=== PATIENT | male | born 1960 | race Caucasian/White ===

== ENCOUNTER 2020-12-24 07:18 | Inpatient (IN) ==
[2020-12-24] MEDS ORDERED: SODIUM CHLORIDE 0.9% 1000ML 1,000 ML IV ONE (07:26)
[2020-12-24] MEDS ORDERED: dexAMETHasone 6 MG in SYRINGE 0 ML IV ONE (08:03)
[2020-12-24 08:04] LABS: Eosinophils # (auto) 0.01 K/uL (0-0.5); Eosinophils % (auto) 0.2 %; Hematocrit (blood only) 39.5 % (42-52); Hemoglobin 13.1 g/dL (14.0-18.0); Immature Granulocytes # (auto) 0.01 K/uL (0.00-0.02); Immature Granulocytes % (auto) 0.2 %; Lymphocytes % (auto) 4.5 %; Mean Corpuscular Hemoglobin 28.5 pg (25-34); Mean Corpuscular Hgb Conc 33.2 g/dL (32-36); Mean Corpuscular Volume 86.1 fL (80-100); Mean Platelet Volume 8.9 fL (7.4-10.4); Monocytes # (auto) 0.75 K/uL (0.11-0.59); Monocytes % (auto) 11.3 %; Neutrophils # (auto) 5.59 K/uL (1.4-6.5); Neutrophils % (auto) 83.8 %; Platelet Count 235 K/uL (130-400); RDW Coefficient of Variation 13.4 % (11.5-14.5); RDW Standard Deviation 42.2 fL (36.4-46.3); Red Blood Count 4.59 M/uL (4.7-6.1); White Blood Count 6.66 K/uL (4.8-10.8)
[2020-12-24 08:07] LABS: Oxygen Saturation VBG 78.8 %; pH VBG 7.47 (7.36-7.41)
--- NOTE | 2020-12-24 08:15 | Emergency Department Note ---
History of Present Illness General Chief complaint: Illness Stated complaint: +COVID,FEVER,NOT FEELING WELL Time Seen by Provider: 12/24/20 07:26 History of Present Illness Provider complaint: Shortness of breath Onset (ago): day(s) 4 Maximum Pain Intensity: 0 Associated symptoms: + cough, + fever/chills, + headaches and + shortness of breath 60-year-old male presents emergency department for shortness of breath. Patient reports he tested positive for COVID-19 on Monday and has been feeling progressively worse. He reports increasing cough, increasing shortness of breath, increasing headache, and fevers that are on and off. Home Medications Medication Instructions Recorded Confirmed Type acetaminophen [Tylenol] 325 mg PO QID PRN 12/24/20 12/24/20 History Allergies Allergy/AdvReac Type Severity Reaction Status Date / Time No Known Allergies Allergy Unverified 12/24/20 08:22 Past Med/Surg History Medical History No pertinent family history No pertinent past medical history Surgical History No pertinent past surgical history Family History Father Coronary heart disease Heart disease Mother Hypertension Other Pulmonary embolism Denies family history of Diabetes Dyslipidemia Asthma Social History (Updated 12/24/20 @ 10:49 by Christopher Spivey MD) Smoking Status: Never smoker Tobacco Type: Smokeless Tobacco (Dip or Chew) Do You Dip or Chew Tobacco: Yes; Hx Alcohol Use: No Hx Substance Use: No Preferred Language: Nigerian Candy Maker Required: No Beliefs That Will Affect Care: None Current Living Situation: Spouse Feels Safe at Home: Yes Assistive Devices: Glasses Review of Systems A total of 10 systems reviewed and were otherwise negative Physical Exam Vital Signs Vital Signs - 24 hr 12/24/20 07:23 12/24/20 07:50 12/24/20 07:56 Temperature 36.7 C Temperature Source Temporal Artery Scan Pulse Rate 109 H Pulse Rate from SpO2 Sensor Respiratory Rate 16 Respiratory Effort / Characteristics Blood Pressure 100/63 Blood Pressure Mean 75 Pulse Oximetry 96 88 L 96 Oxygen Delivery Method Room Air Room Air Nasal Cannula Oxygen Flow Rate 2 Sepsis Recent Fever Within 48 Hours No Sepsis New/Unexplained Change in Mental Status No Sepsis Action Taken by Nursing No Action Required 12/24/20 07:58 12/24/20 07:59 12/24/20 08:00 Temperature 37.5 C Temperature Source Oral Pulse Rate 74 Pulse Rate from SpO2 Sensor 78 Respiratory Rate 17 Respiratory Effort / Characteristics Spontaneous Blood Pressure 140/96 Blood Pressure Mean 110 Pulse Oximetry 98 Oxygen Delivery Method Nasal Cannula Oxygen Flow Rate 2 Sepsis Recent Fever Within 48 Hours Sepsis New/Unexplained Change in Mental Status Sepsis Action Taken by Nursing 12/24/20 08:30 12/24/20 09:00 12/24/20 09:42 Temperature Temperature Source Pulse Rate 74 82 75 Pulse Rate from SpO2 Sensor 75 82 82 Respiratory Rate 23 28 H 17 Respiratory Effort / Characteristics Blood Pressure 139/74 136/69 128/73 Blood Pressure Mean 95 91 91 Pulse Oximetry 93 94 97 Oxygen Delivery Method Nasal Cannula Nasal Cannula Nasal Cannula Oxygen Flow Rate 2 2 2 Sepsis Recent Fever Within 48 Hours Sepsis New/Unexplained Change in Mental Status Sepsis Action Taken by Nursing 12/24/20 10:00 12/24/20 10:30 12/24/20 11:00 Temperature Temperature Source Pulse Rate 73 93 H 82 Pulse Rate from SpO2 Sensor 69 95 H 81 Respiratory Rate 24 24 24 Respiratory Effort / Characteristics Blood Pressure 133/69 137/87 127/72 Blood Pressure Mean 90 103 90 Pulse Oximetry 94 92 93 Oxygen Delivery Method Nasal Cannula Nasal Cannula Nasal Cannula Oxygen Flow Rate 2 2 2 Sepsis Recent Fever Within 48 Hours Sepsis New/Unexplained Change in Mental Status Sepsis Action Taken by Nursing Physical Exam GENERAL: He is oriented to person, place, and time. He appears well-developed and well-nourished. He does not appear distressed. HENT: Exam performed. - Head: Normocephalic and atraumatic. - Right Ear: External ear normal. No mastoid tenderness. - Left Ear: External ear normal. No mastoid tenderness. - Mouth/Throat: The oropharynx is clear and moist. No trismus in the jaw. No dental abscesses or uvula swelling. No oropharyngeal exudate or tonsillar abscesses. EYES: Conjunctivae and EOM are normal. Pupils are equal, round, and reactive to light. Right eye exhibits no discharge. Left eye exhibits no discharge. No scleral icterus. NECK: Normal range of motion. Neck supple. No JVD present. No spinous process tenderness present. No carotid bruit present. No rigidity. No tracheal deviation and normal range of motion present. No Brudzinski's sign and no Kernig's sign noted. CV: Tachycardic rate, regular rhythm, normal heart sounds and intact distal pulses. There is no peripheral edema. Palpable radial pulses bue. PULM/CHEST: Effort normal and breath sounds normal. No respiratory distress. No stridor. He has no wheezes. He has no rales. - Chest Wall: He exhibits no tenderness. ABD: The abdomen is soft. Bowel sounds are normal. He has no distension. No mass is present. There is no tenderness. There is no rebound, no guarding, no Beth's sign and no tenderness at McBurney's point. Rovsig negative. MUSC/SKEL: Normal range of motion. There is no peripheral edema, tenderness or deformity. LYMPH: No cervical adenopathy. NEURO: He is alert and oriented to person, place, and time. He has normal strength. No cranial nerve deficit or sensory deficit. Coordination and gait normal. GCS eye subscore is 4. GCS verbal subscore is 5. GCS motor subscore is 6. Cerebellar tests wnl. SKIN: Skin is warm and dry. He is not diaphoretic. PSYCH: He has a normal mood and affect. Behavior is normal. Judgment and thought content normal. Course Course 07: The patient was evaluated in room A9. A complete history and physical exam was performed Cardiac monitoring: An order was placed for continuous cardiac monitoring. The monitor shows a rate of 110 with sinus rhythm Patient was seen in full airborne precautions. Patient was seen in N95's, glov es, gowns, face shield by myself and staff. Patient was found to be hypoxic on room air and started on 2 L nasal cannula which improved his oxygen saturation. 0945: Vital signs stable on supplemental oxygen via nasal cannula. Labs and imaging are within normal limits with exception of groundglass opacities bilaterally that goes along with patient's Covid pneumonia. Patient will be admitted to the medicine hospitalist team. Decadron 6 mg IV push ordered for the patient. Administered Medications Discontinued Medications Sodium Chloride (Nss 1000ml) 1,000 mls @ 999 mls/hr IV .Q1H1M ONE Stop: 12/24/20 08:26 Last Infusion: 12/24/20 09:18 Dose: 0 mls/hr Documented by: [id number] Admin: 12/24/20 07:59 Dose: 999 mls/hr Documented by: [id number] Dexamethasone 6 mg/ Syringe 1.5 mls @ 1 mls/min IV ONE ONE Stop: 12/24/20 08:04 Last Admin: 12/24/20 08:23 Dose: 1 mls/min Documented by: [id number] Ioversol (Optiray 320 125ml) 120 ml IV ONCE ONE Stop: 12/24/20 09:12 Last Admin: 12/24/20 09:11 Dose: 120 ml Documented by: [id number] Critical Care Time Critical Care Time: Yes Total Critical Care Time: 59 I have personally spent greater than 59 minutes of critical care time in the direct management of this patient. This includes bedside care, interpretation of diagnostic studies, and testing, discussion with consultants, patient, and family members, and other required patient management activities. This 59 minutes is in excess of all separately billable procedures. Medical Decision Making Laboratory Data Result diagrams: 12/24/20 07:50 12/24/20 07:50 Lab Results 12/24/20 12/24/20 12/24/20 Range/Units 07:50 07:50 07:50 WBC 6.66 (4.8-10.8) K/uL RBC 4.59 L (4.7-6.1) M/uL Hgb 13.1 L (14.0-18.0) g/dL Hct 39.5 L (42-52) % MCV 86.1 (80-100) fL MCH 28.5 (25-34) pg MCHC 33.2 (32-36) g/dL RDW Std Deviation 42.2 (36.4-46.3) fL RDW Coeff of [place] 13.4 (11.5-14.5) % Plt Count 235 (130-400) K/uL MPV 8.9 (7.4-10.4) fL Immature Gran % (Auto) 0.2 % Neut % (Auto) 83.8 % Lymph % (Auto) 4.5 % [place] % (Auto) 11.3 % Eos % (Auto) 0.2 % Baso % (Auto) 0.0 % Neut # (Auto) 5.59 (1.4-6.5) K/uL Lymph # (Auto) 0.30 L (1.2-3.4) K/uL [place] # (Auto) 0.75 H (0.11-0.59) K/uL Eos # (Auto) 0.01 (0-0.5) K/uL Baso # (Auto) 0.00 (0-0.2) K/uL Immature Gran # (Auto) 0.01 (0.00-0.02) K/uL PT 10.3 (9.0-12.0) Seconds INR 1.0 (0.9-1.1) APTT 23.7 (21.0-31.0) Seconds PTT Ratio 0.9 VBG pH (7.36-7.41) VBG pCO2 (38-50) mmHg VBG pO2 mmHg VBG HCO3 mmol/L VBG O2 Saturation % VBG Base Excess mEq/L Barometric Pressure mm/Hg Sodium 139 (136-145) mmol/L Potassium 3.8 (3.5-5.1) mmol/L Chloride 106 (98-107) mmol/L Carbon Dioxide 27 (21-32) mmol/L Anion Gap 6.0 (3-11) BUN 8 (7-18) mg/dl Creatinine 0.75 (0.6-1.4) mg/dl Est Cr Clr Drug Dosing 109.7 ml/min Est GFR ( Amer) 116.4 Est GFR (Non-Af Amer) 100.4 BUN/Creatinine Ratio 10.7 (10-20) Glucose 105 H (70-99) mg/dl Lactate (0.4-2.0) mmol/L Calcium 9.1 (8.5-10.1) mg/dl Magnesium 2.1 (1.8-2.4) mg/dl Total Bilirubin 0.6 (0.2-1) mg/dl AST 29 (15-37) U/L ALT 42 (12-78) U/L Alkaline Phosphatase 92 (45-117) U/L Troponin I < 0.015 (0-0.045) ng/ml Total Protein 7.0 (6.4-8.2) gm/dl Albumin 3.2 L (3.4-5.0) gm/dl Globulin 3.8 (2.5-4.0) gm/dl Albumin/Globulin Ratio 0.9 (0.9-2) Procalcitonin (0-0.5) ng/ml Urine Color Urine Appearance (Clear) Urine pH (4.5-7.5) Ur Specific [place] (1.000-1.030) Urine Protein (Negative) Urine Glucose (UA) (Negative) Urine Ketones (Negative) Urine Blood (Negative) Urine Nitrite (Negative) Urine Bilirubin (Negative) Urine Urobilinogen (Negative) Ur Leukocyte Esterase (Negative) COVID-19 Eval Order SARS-CoV-2 (PCR) (Negative) Influenza Type A (PCR) (Neg) Influenza Type B (PCR) (Neg) RSV (RT-PCR) (Neg) 12/24/20 12/24/20 12/24/20 Range/Units 07:50 07:50 08:08 WBC (4.8-10.8) K/uL RBC (4.7-6.1) M/uL Hgb (14.0-18.0) g/dL Hct (42-52) % MCV (80-100) fL MCH (25-34) pg MCHC (32-36) g/dL RDW Std Deviation (36.4-46.3) fL RDW Coeff of [place] (11.5-14.5) % Plt Count (130-400) K/uL MPV (7.4-10.4) fL Immature Gran % (Auto) % Neut % (Auto) % Lymph % (Auto) % [place] % (Auto) % Eos % (Auto) % Baso % (Auto) % Neut # (Auto) (1.4-6.5) K/uL Lymph # (Auto) (1.2-3.4) K/uL [place] # (Auto) (0.11-0.59) K/uL Eos # (Auto) (0-0.5) K/uL Baso # (Auto) (0-0.2) K/uL Immature Gran # (Auto) (0.00-0.02) K/uL PT (9.0-12.0) Seconds INR (0.9-1.1) APTT (21.0-31.0) Seconds PTT Ratio VBG pH 7.47 H (7.36-7.41) VBG pCO2 41 (38-50) mmHg VBG pO2 42 mmHg VBG HCO3 29 mmol/L VBG O2 Saturation 78.8 % VBG Base Excess 5.0 mEq/L Barometric Pressure 729.2 mm/Hg Sodium (136-145) mmol/L Potassium (3.5-5.1) mmol/L Chloride (98-107) mmol/L Carbon Dioxide (21-32) mmol/L Anion Gap (3-11) BUN (7-18) mg/dl Creatinine (0.6-1.4) mg/dl Est Cr Clr Drug Dosing ml/min Est GFR ( Amer) Est GFR (Non-Af Amer) BUN/Creatinine Ratio (10-20) Glucose (70-99) mg/dl Lactate 0.9 (0.4-2.0) mmol/L Calcium (8.5-10.1) mg/dl Magnesium (1.8-2.4) mg/dl Total Bilirubin (0.2-1) mg/dl AST (15-37) U/L ALT (12-78) U/L Alkaline Phosphatase (45-117) U/L Troponin I (0-0.045) ng/ml Total Protein (6.4-8.2) gm/dl Albumin (3.4-5.0) gm/dl Globulin (2.5-4.0) gm/dl Albumin/Globulin Ratio (0.9-2) Procalcitonin < 0.05 (0-0.5) ng/ml Urine Color Urine Appearance (Clear) Urine pH (4.5-7.5) Ur Specific [place] (1.000-1.030) Urine Protein (Negative) Urine Glucose (UA) (Negative) Urine Ketones (Negative) Urine Blood (Negative) Urine Nitrite (Negative) Urine Bilirubin (Negative) Urine Urobilinogen (Negative) Ur Leukocyte Esterase (Negative) COVID-19 Eval Order SARS-CoV-2 (PCR) (Negative) Influenza Type A (PCR) (Neg) Influenza Type B (PCR) (Neg) RSV (RT-PCR) (Neg) 12/24/20 12/24/20 12/24/20 Range/Units 09:20 10:00 10:00 WBC (4.8-10.8) K/uL RBC (4.7-6.1) M/uL Hgb (14.0-18.0) g/dL Hct (42-52) % MCV (80-100) fL MCH (25-34) pg MCHC (32-36) g/dL RDW Std Deviation (36.4-46.3) fL RDW Coeff of [place] (11.5-14.5) % Plt Count (130-400) K/uL MPV (7.4-10.4) fL Immature Gran % (Auto) % Neut % (Auto) % Lymph % (Auto) % [place] % (Auto) % Eos % (Auto) % Baso % (Auto) % Neut # (Auto) (1.4-6.5) K/uL Lymph # (Auto) (1.2-3.4) K/uL [place] # (Auto) (0.11-0.59) K/uL Eos # (Auto) (0-0.5) K/uL Baso # (Auto) (0-0.2) K/uL Immature Gran # (Auto) (0.00-0.02) K/uL PT (9.0-12.0) Seconds INR (0.9-1.1) APTT (21.0-31.0) Seconds PTT Ratio VBG pH (7.36-7.41) VBG pCO2 (38-50) mmHg VBG pO2 mmHg VBG HCO3 mmol/L VBG O2 Saturation % VBG Base Excess mEq/L Barometric Pressure mm/Hg Sodium (136-145) mmol/L Potassium (3.5-5.1) mmol/L Chloride (98-107) mmol/L Carbon Dioxide (21-32) mmol/L Anion Gap (3-11) BUN (7-18) mg/dl Creatinine (0.6-1.4) mg/dl Est Cr Clr Drug Dosing ml/min Est GFR ( Amer) Est GFR (Non-Af Amer) BUN/Creatinine Ratio (10-20) Glucose (70-99) mg/dl Lactate (0.4-2.0) mmol/L Calcium (8.5-10.1) mg/dl Magnesium (1.8-2.4) mg/dl Total Bilirubin (0.2-1) mg/dl AST (15-37) U/L ALT (12-78) U/L Alkaline Phosphatase (45-117) U/L Troponin I (0-0.045) ng/ml Total Protein (6.4-8.2) gm/dl Albumin (3.4-5.0) gm/dl Globulin (2.5-4.0) gm/dl Albumin/Globulin Ratio (0.9-2) Procalcitonin (0-0.5) ng/ml Urine Color Yellow Urine Appearance Clear (Clear) Urine pH 7.5 (4.5-7.5) Ur Specific [place] 1.013 (1.000-1.030) Urine Protein Negative (Negative) Urine Glucose (UA) Negative (Negative) Urine Ketones Negative (Negative) Urine Blood Negative (Negative) Urine Nitrite Negative (Negative) Urine Bilirubin Negative (Negative) Urine Urobilinogen Negative (Negative) Ur Leukocyte Esterase Negative (Negative) COVID-19 Eval Order [facility] at [facility] SARS-CoV-2 (PCR) POSITIVE A* (Negative) Influenza Type A (PCR) Negative (Neg) Influenza Type B (PCR) Negative (Neg) RSV (RT-PCR) Negative (Neg) Imaging Data Radiologist's Impression: CT ANGIOGRAM OF THE CHEST CLINICAL HISTORY: Shortness of breath. Recent Covid 19 diagnosis. COMPARISON STUDY: Chest x-ray dated 12/24/2020 TECHNIQUE: Following the IV administration of 120 mL of Optiray-320, CT ang iogram of the thorax was performed from the thoracic inlet to the lung bases utilizing the pulmonary embolus protocol. Images are reviewed in the axial, sagittal, and coronal planes. IV contrast was administered without complication. MIP imaging was performed. A dose lowering technique was utilized adhering to the principles of ALARA. CT DOSE: 541.77 mGycm FINDINGS: Mediastinal and hilar lymph nodes are the upper limits of normal in size. There was no evidence of thoracic aortic dilatation. There were no pulmonary artery filling defects to indicate acute pulmonary embolism. There are small bilateral pleural effusions. There are bilateral groundglass opacities, consistent with a multifocal pneumonia. The findings are consistent with Covid 19 pneumonia. IMPRESSION: 1. Scattered bilateral groundglass opacities consistent with a multifocal pneumonia. The findings are consistent with although not specific for Covid 19 pneumonia 2. No evidence of acute pulmonary embolism ACT 112: Negative or not required by law. Electronically signed by: Oumar Herrera M.D. 12/24/2020 9:43 AM Dictated: 12/24/[id number]: 03/18/21 0940 SINGLE VIEW CHEST CLINICAL HISTORY: Sepsis. Covid. FINDINGS: An AP, portable, upright chest radiograph is obtained. No prior studies are available for comparison at the time of dictation. The examination is degraded by portable technique and patient rotation. The heart is top normal for projection. There is elevation of the right hemidiaphragm. Patchy consolidation is seen at both lung bases. No large pleural effusion or pneumothorax is seen. The bony thorax is grossly intact. IMPRESSION: There is bibasilar airspace consolidation consistent with the reported history of a viral pneumonia. Radiographic follow-up to resolution is r ecommended. ACT 112: Negative or not required by law. Electronically signed by: Ron Bertrand M.D. 12/24/2020 8:36 AM Dictated: 12/24/20 0835Transcribed: 12/24/20 0835 [facility] Narrative 0726: The patient was evaluated in room A9. A complete history and physical exam was performed Cardiac monitoring: An order was placed for continuous cardiac monitoring. The monitor shows a rate of 110 with sinus rhythm Patient was seen in full airborne precautions. Patient was seen in N95's, gloves, gowns, face shield by myself and staff. Patient was found to be hypoxic on room air and started on 2 L nasal cannula which improved his oxygen saturation. 0945: Vital signs stable on supplemental oxygen via nasal cannula. Labs and imaging are within normal limits with exception of groundglass opacities bilaterally that goes along with patient's Covid pneumonia. Patient will be admitted to the medicine hospitalist team. Decadron 6 mg IV push ordered for the patient. Impression & Plan Pneumonia due to COVID-19 virus, Hypoxia Discharge Plan Visit Data Chief Complaint: Illness Stated Complaint: +COVID,FEVER,NOT FEELING WELL ED Provider: Jelani Jonas Discharge Problem: Pneumonia due to COVID-19 virus, Hypoxia Patient Disposition: Admitted As Inpatient Discharge Instructions Interventions: ED Discharge Assessment Last Done: 12/24/20 13:23
[2020-12-24 08:19] LABS: Partial Thromboplastin Ratio 0.9; Partial Thromboplastin Time 23.7 Seconds (21.0-31.0); Prothrombin Time 10.3 Seconds (9.0-12.0)
[2020-12-24 08:20] LABS: Alanine Aminotransferase 42 U/L (12-78); Albumin Level 3.2 gm/dl (3.4-5.0); Aspartate Aminotransferase 29 U/L (15-37); BUN Creatinine Ratio 10.7 (10-20); Blood Urea Nitrogen 8 mg/dl (7-18); Calcium 9.1 mg/dl (8.5-10.1); Carbon Dioxide 27 mmol/L (21-32); Chloride 106 mmol/L (98-107); Creatinine Clr Calc Pharmacy 109.7 ml/min; Est GFR (African American) 116.4; Est GFR (Non-African American) 100.4; Glucose 105 mg/dl (70-99); Magnesium 2.1 mg/dl (1.8-2.4); Potassium 3.8 mmol/L (3.5-5.1); Sodium 139 mmol/L (136-145)
[2020-12-24 08:26] LABS: Albumin Globulin Ratio 0.9 (0.9-2); Alkaline Phosphatase 92 U/L (45-117); Bilirubin,Total 0.6 mg/dl (0.2-1); Globulin 3.8 gm/dl (2.5-4.0); Troponin I < 0.015 ng/ml (0-0.045)
--- NOTE | 2020-12-24 08:37 | XRay Report ---
SINGLE VIEW CHEST CLINICAL HISTORY: Sepsis. Covid. FINDINGS: An AP, portable, upright chest radiograph is obtained. No prior studies are available for c omparison at the time of dictation. The examination is degraded by portable technique and patient rot ation. The heart is top normal for projection. There is elevation of the right hemidiaphragm. Patch y consolidation is seen at both lung bases. No large pleural effusion or pneumothorax is seen. The sj ny thorax is grossly intact. IMPRESSION: There is bibasilar airspace consolidation consistent with the reported history of a viral pneumonia. Radiographic follow-up to resolution is recommended. ACT 112: Negative or not required by law. Electronically signed by: Ron Bertrand M.D. 12/24/2020 8:36 AM
[2020-12-24] MEDS ORDERED: OPTIRAY 320 125ml IV ONE (09:11)
[2020-12-24 09:38] LABS: Appearance Urine Clear (Clear); Bilirubin Urine Negative (Negative); Blood Urine Negative (Negative); Color Urine Yellow; Glucose Urine UA Negative (Negative); Ketones Urine Negative (Negative); Leukocyte Esterase Urine Negative (Negative); Nitrite Urine Negative (Negative); Protein Urine Negative (Negative); Specific Gravity Urine 1.013 (1.000-1.030); Urobilinogen Urine Negative (Negative); pH Urine 7.5 (4.5-7.5)
--- NOTE | 2020-12-24 09:44 | CT Scan Report ---
CT ANGIOGRAM OF THE CHEST CLINICAL HISTORY: Shortness of breath. Recent Covid 19 diagnosis. COMPARISON STUDY: Chest x-ray dated 12/24/2020 TECHNIQUE: Following the IV administration of 120 mL of Optiray-320, CT angiogram of the thorax was p erformed from the thoracic inlet to the lung bases utilizing the pulmonary embolus protocol. Images a re reviewed in the axial, sagittal, and coronal planes. IV contrast was administered without complica tion. MIP imaging was performed. A dose lowering technique was utilized adhering to the principles o f ALARA. CT DOSE: 541.77 mGycm FINDINGS: Mediastinal and hilar lymph nodes are the upper limits of normal in size. There was no evidence of thoracic aortic dilatation. There were no pulmonary artery filling defects to indicate acute pulmonary embolism. There are small bilateral pleural effusions. There are bilateral groundglass opacities, consistent with a multifocal pneumonia. The findings are c onsistent with Covid 19 pneumonia. IMPRESSION: 1. Scattered bilateral groundglass opacities consistent with a multifocal pneumonia. The findings are consistent with although not specific for Covid 19 pneumonia 2. No evidence of acute pulmonary embolism ACT 112: Negative or not required by law. Electronically signed by: Oumar Herrera M.D. 12/24/2020 9:43 AM
--- NOTE | 2020-12-24 10:15 | History & Physical Report ---
Date of Service December 24, 2020 Assessment & Plan (1) Pneumonia due to COVID-19 virus: Glenroy Garsia is a 60-year-old male who denies past PMHx other than tobacco chew use, but does not have a PCP and who presented to the emergency department with shortness of breath associated with cough, fever/chills, and headache. He is admitted for Covid positive pneumonia COVID positive pneumonia No leukocytosis, fever by report but afebrile on admission Symptoms began 5-6 days ago, last fever 1 day ago per pt CXR: Bibasilar airspace consolidation consistent with viral pneumonia. Independently reviewed. CTchest: Bibasilar groundglass opacities consistent with multifocal pneumonia and COVID-19. No evidence of acute PE. Independently reviewed. Hypoxic to 80s on admission, saturations greater than 94% on 2 L of supplemental oxygen No home oxygen requirement VBG 7.4 //, suggestive of mild mixed compensated alkalosis Lactate normal, procalcitonin negative Platelet count normal, D-dimer pending Blood cultures x2 pending -Troponin negative. EKG normal sinus rhythm rate 86 QTC 430, no territorial ST changes, reviewed. Received dexamethasone 6 mg x 1 in ER Remdesivir deferred. Convalescent plasma deferred. Continue dexamethasone 6 mg daily x10-day course - Airborne precautions Tobacco Use -Patient is a 1 can/day chew user Nicotine patch as needed Impaired glucose No history of diabetes, BMP daily PCP follow-up Patient did not have a primary care provider at this time. Both for follow-up of his resolving pneumonia and routine health maintenance including diabetes and other recommended screening he would benefit from front to PCP at discharge, may consider [facility] clinic. DVT prophylaxis: Covid DVT prophylaxis, Lovenox 40 mg twice daily Diet: Regular Disposition: Medical surgical Code: Full History of Present Illness Primary Care Provider: NO PCP Glenroy Garsia is a 60-year-old male who denies past PMHx other than tobacco chew use, but does not have a PCP and who presented to the emergency department with shortness of breath associated with cough, fever/chills, and headache. He is admitted for Covid positive pneumonia Glenroy started feeling ill sat-sun (~5 days ago). He went to urgent care 5 days ago on Monday and was positive for COVID19. He feels everyday since then he has been 'going backwards not forward' and getting worse daily. He has had progressive shortness of breath. He was not short of breath at rest at home, but any exertion would make him extremly short of breath and worse 'I couldn't get a deep breath, and trying seemed to make it worse.' He endorses some associated chest pain with coughing and worsened with deep inspiration worsens the pain and stops him from taking a very large breath. Pain is in the bottom middle of his sternum, 6/10 at rest 8-9/10 with a deep breath. No pain radiating into the back, shoulder, or neck. Endorses fatigue, poor appetite, and 'no energy.' Denies nausea, vomiting, diarrhea, and constipation. No abdominal pain. He endorses fevers and chills which began Monday ( 5 days) with alternating with clammy cold-hot chills. Last fever/chills was last night, none today. His mother also has COVID at 88yo, at [facility]. Saw her on Monday. Son-in-law has COVID as well dx 1 week ago. His mother got the first COVID shot, but wasn't able to get the 2nd due to COVID PNA. Medical history: Denies PMHx. He does not have a PCP. Medications: None. Medication allergies: NKDA Surgical history: Family history: Mother Social history: Lives with his in a home who is not ill. Tobacco: Uses chew tobacco, 1 can/day for >30 years. Alcohol: Rarely, <3 when he does. Recreational drug: Denies CODE STATUS: Full Code Allergies Allergy/AdvReac Type Severity Reaction Status Date / Time No Known Allergies Allergy Unverified 12/24/20 08:22 Home Medications Medication Instructions Recorded Confirmed Type acetaminophen [Tylenol] 325 mg PO QID PRN 12/24/20 12/24/20 History Past Med/Surg History Medical History No pertinent family history No pertinent past medical history Surgical History No pertinent past surgical history Family History Father Coronary heart disease Heart disease Mother Hypertension Other Pulmonary embolism Denies family history of Diabetes Dyslipidemia Asthma Social History (Updated 12/24/20 @ 10:49 by Christopher Spivey MD) Smoking Status: Never smoker Tobacco Type: Smokeless Tobacco (Dip or Chew) Do You Dip or Chew Tobacco: Yes; Hx Alcohol Use: No Hx Substance Use: No Preferred Language: Romanian 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 Integumentary:Denies rash, lesions, bruising Neurological: Denies headache, numbness, tingling, focal weakness. Endorses heachache with earlier symptoms which resolved. Physical Exam Physical Exam: General: A&Ox3. NAD. Cooperative. HEENT: Atraumatic, normocephalic. Pulm: Moderate air movement, no wheezes or rales appreciated. No accessory muscles of breathing used. On 2 L nasal cannula. Cardiac: Tachycardic, -mrg. Radial pulses intact and symmetrical. Abdominal: Nontender, nondistended, soft. BS present. CRANIAL NERVES: II: Pupils equal and reactive, no relative afferent pupillary defect, no VF cuts III, IV, : EOM intact, no gaze preference or deviation, no nystagmus. V: n.d. VII: no asymmetry, no nasolabial fold flattening VIII: normal hearing to speech IX, X: normal palatal elevation, no uvular deviation XI: 5/5 head turn and 5/5 shoulder shrug bilaterally XII: midline tongue protrusion MOTOR: RUE: 5/5 blind cleaner strength LUE: 5/5 blind cleaner strength RLE: 5/5 ankle dorsiflexion/plantarflexion LLE: 5/5 ankle dorsiflexion/plantarflexion SENSORY: Normal to touch, pinprick, vibration, temp in upper and lower extremities without deficit or asymmetry Results & Data Results & Data ([facility]) Vital Signs (Past 12 Hours) Vital Signs Temp Pulse Resp BP Pulse Ox 12/24/20 09:42 75 17 128/73 97 12/24/20 09:00 82 28 H 136/69 94 12/24/20 08:30 74 23 139/74 93 12/24/20 08:00 74 17 140/96 98 12/24/20 07:59 37.5 C 12/24/20 07:56 96 12/24/20 07:50 88 L 12/24/20 07:23 36.7 C 109 H 16 100/63 96 Supervising Physician Co-Signing Physician Notes I personally examined the patient and verified all guillermo points of history and exam, discussed case, and agree with decision making with Dr Spivey. Very afraid and tearful, worries about how he is going to do. Still coughing, does not seem to be too short of breath when I see him. Oxygen has been weaned down to where it is hard to tell if it is at 0.5 or actually off, and his pulse ox is 95 to 96% while were talking. Vitals noted, in general he is awake and alert tearful but no physical distress, intermittent coughing. HEENT normocephalic atraumatic mucous membranes moist. Breathing unlabored no accessory muscle use good effort. Skin shows no rashes no pallor or icterus. Neuro shows cranial nerves II through XII be grossly intact gross motor and sensory are intact Covid pneumonia/acute hypoxia related to Covid pneumoniaDecadron, supportive care, wean oxygen, follow clinically. DVT prophylaxis Lovenox Otherwise as above Resident Activity Tracking Resident Involvement: Resident Care Provided Care Provided: Adult Hospital Medicine
[2020-12-24 10:56] LABS: Influenza A virus by PCR Negative (Neg); Influenza B virus by PCR Negative (Neg); RSV by PCR Negative (Neg)
[2020-12-24 10:59] LABS: SARS CoV2 RNA(COVID-19) InHosp POSITIVE (Negative)
[2020-12-24] MEDS ORDERED: NICOTINE 14 MG/24 HR PATCH TD PRN (13:52)
[2020-12-24] MEDS ORDERED: POLYETHYLENE (MIRALAX) 17 GM PACK PO PRN (13:52)
[2020-12-24 15:20] LABS: D Dimer 210 ug/L FEU (0-500)
[2020-12-24] MEDS: ENOXAPARIN INJ 40 MG/0.4 ML SYR SQ SCH (18:04)
--- NOTE | 2020-12-24 19:02 | Billing Data ---
Date of Service December 24, 2020 Coding Level of Care Code 92135 Initial Inpt Care Lvl 3
[2020-12-25] MEDS: BENZONATATE 100 MG CAPSULE PO PRN ×2 (00:45→08:41)
[2020-12-25] MEDS: ENOXAPARIN INJ 40 MG/0.4 ML SYR SQ SCH ×2 (05:17→18:12)
--- NOTE | 2020-12-25 05:55 | Electrocardiogram Report ---
Test Reason : Blood Pressure : / mmHG Vent. Rate : 086 BPM Atrial Rate : 086 BPM P-R Int : 136 ms QRS Dur : 100 ms QT Int : 360 ms P-R-T Axes : 005 -39 022 degrees QTc Int : 430 ms Sinus rhythm with marked sinus arrhythmia Premature atrial complexes Left axis deviation Abnormal ECG No previous ECGs available Confirmed by Kareem Rubio ([id number]) on 12/25/2020 5:55:20 AM Referred By: REFERRED SELF Confirmed By:Kareem Rubio
[2020-12-25 06:39] LABS: Hematocrit (blood only) 36.9 % (42-52); Hemoglobin 12.1 g/dL (14.0-18.0); Immature Granulocytes # (auto) 0.01 K/uL (0.00-0.02); Immature Granulocytes % (auto) 0.1 %; Lymphocytes # (auto) 0.31 K/uL (1.2-3.4); Lymphocytes % (auto) 4.5 %; Mean Corpuscular Hemoglobin 28.1 pg (25-34); Mean Corpuscular Hgb Conc 32.8 g/dL (32-36); Mean Corpuscular Volume 85.6 fL (80-100); Monocytes # (auto) 0.82 K/uL (0.11-0.59); Neutrophils # (auto) 5.68 K/uL (1.4-6.5); Neutrophils % (auto) 83.4 %; Platelet Count 243 K/uL (130-400); RDW Coefficient of Variation 13.3 % (11.5-14.5); RDW Standard Deviation 42.3 fL (36.4-46.3); Red Blood Count 4.31 M/uL (4.7-6.1); White Blood Count 6.82 K/uL (4.8-10.8)
[2020-12-25 07:09] LABS: Albumin Level 2.8 gm/dl (3.4-5.0); BUN Creatinine Ratio 15.7 (10-20); Calcium 8.3 mg/dl (8.5-10.1); Creatinine Clr Calc Pharmacy 107.8 ml/min; Est GFR (African American) 115.7; Est GFR (Non-African American) 99.9; Potassium 3.6 mmol/L (3.5-5.1)
[2020-12-25 07:12] LABS: Albumin Globulin Ratio 0.8 (0.9-2); Bilirubin,Total 0.8 mg/dl (0.2-1); Globulin 3.6 gm/dl (2.5-4.0); Total Protein 6.4 gm/dl (6.4-8.2)
[2020-12-25] MEDS: ACETAMINOPHEN 325 MG TAB PO PRN (08:42)
[2020-12-25] MEDS: dexAMETHasone 6 MG in SYRINGE 0 ML IV SCH (08:42)
--- NOTE | 2020-12-25 15:56 | Hospitalist Progress Note ---
Date of Service December 25, 2020 Assessment & Plan (1) Pneumonia due to COVID-19 virus: Glenroy Garsia is a 60-year-old male who denies past PMHx other than tobacco chew use, but does not have a PCP and who presented to the emergency department with shortness of breath associated with cough, fever/chills, and headache. 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 Independently reviewed. CTchest: Bibasilar groundglass opacities consistent with multifocal pneumonia and COVID-19. No evidence of acute PE. Independently reviewed. Hypoxic to 80s on admission, saturations greater than 94% on 2 L of supplemental oxygen No home oxygen requirement VBG 7.4 //29, suggestive of mild mixed compensated alkalosis Lactate normal, procalcitonin negative. Platelet count normal, D-dimer negative Blood cultures x2 pending. ngtd -Troponin negative. EKG normal sinus rhythm rate 86 QTC 430, no territorial ST changes, reviewed. Received dexamethasone 6 mg x 1 in ER Remdesivir deferred. Convalescent plasma deferred. Continue dexamethasone 6 mg daily x10-day course - Airborne precautions - Anticipate d/c home, requires an additional overnight stay for hypoxia slowly improving. Tobacco Use -Patient is a 1 can/day chew user Nicotine patch as needed Impaired glucose No history of diabetes, BMP daily PCP follow-up Patient did not have a primary care provider at this time. Attempting to set up with [facility] as PCP, his is aware and working on intake paperwork as well. DVT prophylaxis: Covid DVT prophylaxis, Lovenox 40 mg twice daily Diet: Regular Disposition: Medical surgical Code: Full Admission and Anticipated Discharge Date Admission Date: December 24, 2020 Supervising Physician Co-Signing Physician Notes I personally examined the patient and verified all guillermo points of history and exam, discussed case, and agree with decision making with Dr Spivey. Feeling a good bit better, pulse ox is still somewhat lowparticularly with exertion, unable to get home oxygen set up. Vitals noted, in general he is awake and alert tearful but no physical distress, intermittent coughing. HEENT normocephalic atraumatic mucous membranes moist. Breathing unlabored no accessory muscle use good effort. Skin shows no rashes no pallor or icterus. Neuro shows cranial nerves II through XII be grossly intact gross motor and sensory are intact. Of note when he calls his family as I am leaving the room and on gowning, he has such conversational dyspnea/coughing fits that he is at times unable to complete a sentence Covid pneumonia/acute hypoxia related to Covid pneumoniaDecadron, supportive care, weaning oxygen, follow clinically. Does seem to be improving, hopefully home in the next day or so, but given his marginal oxygenation, the inability to set up oxygen for home, and his bouts of significant coughing etc., I feel it prudent to watch him at least another day for improvement DVT prophylaxis Lovenox Otherwise as above Subjective Laying comfortably in bed. Reports SoB with extertion, non at rest, but still has difficulty taking a deep breath due to pain. No CP at rest. No fevers/chills, endoreses feeling 'a little clammy' intermittently overnight. Discussed overall presentation and findings, no other questions at time of exam. Review of Systems Review of Systems: All systems reviewed & are unremarkable except as noted in Subjective Physical Exam Physical Exam: General: A&Ox3. NAD. Cooperative. HEENT: Atraumatic, normocephalic. Vision and hearing grossly intact. Pulm: Diminished in the bases bilaterally without wheeze/rales/rhonchi. Moderate air movement, good air movement superiorly. +discomfort on maximal inspiration Symmetrical chest rise. No increase work of breathing. No respiratory distress. Cardiac: RRR, -mrg. Radial pulses intact and symmetrical. Abdominal: Nontender, nondistended, soft. BS present. Ext: warm, dry Results & Data Results & Data ([facility]) Vital Signs (Past 12 Hours) Vital Signs Temp Pulse Pulse Pulse Pulse Resp Resp 12/25/20 10:54 12/25/20 10:31 88 80 77 16 12/25/20 08:32 12/25/20 08:29 36.8 C 86 16 12/25/20 08:25 12/25/20 05:19 75 Resp Resp BP Pulse Ox Pulse Ox Pulse Ox Pulse Ox 12/25/20 10:54 92 12/25/20 10:31 16 16 91 92 12/25/20 08:32 88 L 12/25/20 08:29 123/77 91 12/25/20 08:25 90 12/25/20 05:19 93 Pulse Ox 12/25/20 10:54 12/25/20 10:31 92 12/25/20 08:32 12/25/20 08:29 12/25/20 08:25 12/25/20 05:19 Resident Activity Tracking Resident Involvement: Resident Care Provided Care Provided: Adult Hospital Medicine
--- NOTE | 2020-12-25 19:06 | Billing Data ---
Date of Service December 25, 2020 Coding Level of Care Code 38456 Subseq Hosp Care Lvl 2
[2020-12-25] MEDS ORDERED: MELATONIN 3 MG TAB PO PRN (22:06)
[2020-12-25] MEDS: guaiFENesin 600 MG TABCR PO PRN (22:20)
[2020-12-26] MEDS: ENOXAPARIN INJ 40 MG/0.4 ML SYR SQ SCH (06:36)
[2020-12-26] MEDS: dexAMETHasone 6 MG in SYRINGE 0 ML IV SCH (07:40)
[2020-12-26] MEDS: guaiFENesin 600 MG TABCR PO PRN (07:41)
[2020-12-26] MEDS: ACETAMINOPHEN 325 MG TAB PO PRN (08:44)
[2020-12-26] MEDS ORDERED: NICOTINE 14 MG/24 HR PATCH TD SCH (09:00)
--- NOTE | 2020-12-26 16:27 | Discharge Summary ---
Date of Service December 26, 2020 Admission HPI Per Admitting Provider Glenroy Garsia is a 60-year-old male who denies past PMHx other than tobacco chew use, but does not have a PCP and who presented to the emergency department with shortness of breath associated with cough, fever/chills, and headache. He is admitted for Covid positive pneumonia Glenroy started feeling ill sat-sun (~5 days ago). He went to urgent care 5 days ago on Monday and was positive for COVID19. He feels everyday since then he has been 'going backwards not forward' and getting worse daily. He has had progressive shortness of breath. He was not short of breath at rest at home, but any exertion would make him extremly short of breath and worse 'I couldn't get a deep breath, and trying seemed to make it worse.' He endorses some associated chest pain with coughing and worsened with deep inspiration worsens the pain and stops him from taking a very large breath. Pain is in the bottom middle of his sternum, 6/10 at rest 8-9/10 with a deep breath. No pain radiating into the back, shoulder, or neck. Endorses fatigue, poor appetite, and 'no energy.' Denies nausea, vomiting, diarrhea, and constipation. No abdominal pain. He endorses fevers and chills which began Monday ( 5 days) with alternating with clammy cold-hot chills. Last fever/chills was last night, none today. His mother also has COVID at 88yo, at [facility]. Saw her on Monday. Son-in-law has COVID as well dx 1 week ago. His mother got the first COVID shot, but wasn't able to get the 2nd due to COVID PNA. Medical history: Denies PMHx. He does not have a PCP. Medications: None. Medication allergies: NKDA Surgical history: Family history: Mother Social history: Lives with his in a home who is not ill. Tobacco: Uses chew tobacco, 1 can/day for >30 years. Alcohol: Rarely, <3 when he does. Recreational drug: Denies CODE STATUS: Full Code Principal Diagnosis Covid 19 pneumonia, hypoxic respiratory failure improved Discharge Exam In general he is awake alert oriented, pleasant no distress. HEENT normocephalic atraumatic mucous membranes moist. Breathing/lungs overall clear to auscultation may be slightly diminished air entry, no rales rhonchi or wheezes good effort. His pulse ox hovers around 91-92 whenever he is sitting, actually improved to more like 95-96 when he is up and walking. No accessory muscle use no conversational dyspnea, his cough seems to be improvedhe seems easier to be able to talk without breaking into intractable coughing fits. No focal neuro deficits Discharge Data Allergies Allergy/AdvReac Type Severity Reaction Status Date / Time No Known Allergies Allergy Unverified 12/24/20 08:22 Consultations 12/24/20 09:42 ED Decision to Admit Stat Ordered Studies 12/24/20 07:26 CT angio chest PE protocol Stat Hospital Course (1) Pneumonia due to COVID-19 virus: PeriodicShowing improvement. He initially was requiring 2 L of oxygen, this was quickly able to be weaned, but he was still showing significant dyspnea/coughing fits, as well as desaturations. He was not quite low enough to easily qualify for home oxygen, so we kept him in house and watch him another day to ensure he did not decompensate. Fortunately he has not. He appears to be safe for home on dexamethasone. Today he did not desaturate with walking (did not drop below 90%) and appears stable for home. Educated on slow recovery, educated on use of a pulse ox, he seems to be very positional dependent with his hypoxiawe discussed that he would likely do much better sleeping reasonably upright in a recliner chair, or laying prone, but not reasonably flat/supine. He expressed understanding of all of this. Overall stable for home. Finish out 10 days of Decadron. (2) Hypoxia: See above, improving, educated on use of pulse ox, his has already picked 1 up for him. Total Time Total Time Spent Total Time Spent (In Minutes): Greater than 30 Discharge Plan Discharge Items Patient Disposition: Home - Self-Care Reason For Visit: COVID PNA Discharge Diagnosis: COVID Pneumonia Activity: Per Instructions section Non-emergency contact: Primary Care Provider Call non-emergency contact if: you have any medication questions, your symptoms worsen, your pain is not controlled, you have a fever and your rectal temperature is above 100.4 Follow-up/Referrals: PCP,NO [Primary Care Provider] - Diet: Regular Addtl Attending Provider Instructions: COVID-19 pneumonia -Typically what we have been seeing with Covid is that it takes quite a while to get better. There is usually a lot of inflammation in the lungs that takes a while to clear. 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 Rather, look back in 3 to 4-day increments. If at any point you notice that you are worsening, that would warrant getting checked out right away, but if it simply that you feel like you are not getting betterthat is where looking back 3 to 4 days prior to compare gives you a more honest assessment. -Gradually increase activitydo not do anything that causes your oxygen saturations to drop below 90when that happens you should certainly stop and rest, but otherwise what you will want to do is gradually do more without pushing too hard. -Isolation recommendations keep changing, but right now the CDC would recommend that it is safe to be around others once 10 days have passed from when you first got sick, when you are 24 hours without a fever, and when your other symptoms are improving. It is, of course, that third criteria that will be a bit vague with yougiven that it will probably take a while for it to be clear that your symptoms are improving. To that end, it may be prudent to wait a little longer from when your symptoms first started, just to be sure that you are safe around other people. Pulse ox -A pulse ox can be a really helpful guide as you recover, given that it will show you objective data on your oxygen numbers -A quick perspective: Pulse ox is give you a percentage saturation of oxygen on your hemoglobin, not a "grade." To that end, it is important to remember that for a pulse ox, 97% or higher is what would really be "normal." 90% is not an "A-" and 88% is not a "B+". Something in those ranges is a bit low, is a reasonable guideline, for you, anything 90% or higher could be considered "safe". -If you are feeling short of breath, and you check a pulse ox, and it is above 90, then it is reasonable to watch and wait and see how you do over several hours. If you start to feel better, and your pulse ox stays above 90, then it is absolutely okay to stay at home. If your symptoms are worse/worrisome/not getting better, and your pulse ox is still above 90, it would really be your judgment call (and if in doubt favor seeking healthcare guidance). Regardless of symptoms, if you cannot get your pulse ox above 90% with rest, you would really want to move fairly quickly to getting checked out in the ER. Steroids -The dexamethasone that we are giving you basically works the same orally as it does IV. In that respect we are not reducing treatment, more making a bit of a lateral move. We will treat for a total of 10 days with the steroids. Your next dose (your first dose at home) will be tomorrow The intake process for you to follow-up with a primary care provider at [facility] was started during admission. You were provided paperwork for their intake process. Their office was notified that you are being discharged and that would be attempting to follow-up with them after discharge. Please fill out this paperwork, and contact their office at [phone] for further details. You should be seen for follow-up within 1 month, or sooner if you do not continue to improve. If you develop any new or worsening symptoms including fever, chills, sweats, chest pain, chest pressure, difficulty breathing, uncontrolled nausea/vomiting, rash, wheezing, passing out or nearly passing out, bleeding, black/bloody bowel movements, or other new or concerning symptoms please call your primary care physician at [phone], or call 911 for re-evaluation in the emergency department if you are very concerned. Pending Studies at Discharge: No Stand-Alone Forms: [facility], Smoking Cessation Medications and DC Order Prescriptions: New dexamethasone 6 mg tablet 6 mg PO DAILY Qty: 7 RF: 0 Continued acetaminophen [Tylenol] 325 mg Capsule 325 mg PO QID PRN (Reason: Pain) RF: 0 Discharge Orders: Discharge Order (Routine); Ordered 12/26/20 Ordered By: Lenny Rivers/Other Patient Handouts: COVID-19 Home Care, Proning COVID-19, Disinfecting Your Home of COVID-19 Admission Data Admit Date/Time: 12/24/20 11:02 Attending Provider: Lenny Campuzano Admit Provider: Lenny Campuzano Primary Care Provider: PCP,NO Other Providers: Lenny Campuzano Other Interventions: Discharge Summary Assessment (RN) Last Done: 12/26/20 11:07 Coding Level of Care Code D/C Day Management >30 mins Diagnoses Pneumonia due to COVID-19 virus U07.1; J12.82 Hypoxia R09.02
== END 2020-12-26 13:08 | disposition home or self-care (01) | DRG 177 ==
LOC: ED 07:18 → 3N 11:02